=== PATIENT | female | born 1985 | race Caucasian/White ===

== ENCOUNTER 2020-08-02 09:15 | Emergency (ER) | payer SELFPAY ==
[2020-08-02] MEDS ORDERED: NORMAL SALINE 1000 ML 1,000 ML IV ONE (11:14)
[2020-08-02] MEDS ORDERED: MORPHINE SULFATE 10 MG/ML INJ IV ONE (11:15)
[2020-08-02] MEDS ORDERED: PROMETHAZINE HCL INJ 25 MG/1 ML VIAL IV ONE (11:15)
--- NOTE | 2020-08-02 11:21 | ER Document Report ---
ED GI/ - General Chief Complaint: Abdominal Pain Stated Complaint: NAUSEA,VOMITING,DIARRHEA Time Seen by Provider: 08/02/20 10:37 - HPI Patient complains to provider of: Abdominal pain. No: Diarrhea, Dysuria Timing/Duration: Gradual Quality of pain: Sharp Context: denies: Bad food Location: LLQ, RLQ, Low back Vaginal bleeding (Compared to normal period): None Associated symptoms: Loss of appetite, Nausea. denies: Blood in stool, Chest pain, Chills, Constipation, Diarrhea, Dysuria, Fever, Shortness of breath Exacerbated by: Food Relieved by: Denies Similar symptoms previously: Yes Recently seen / treated by doctor: Yes Notes: 08/02/20 12:41 Patient is a 34-year-old female with a past medical history of anxiety who presents with abdominal pain. Patient states abdominal pain has been present off and on for about 1 month. She describes it as pain in her bilateral lower quadrants that wraps around to her lower back. Patient denies any urinary symptoms. She denies any diarrhea or constipation. Patient has some nausea. Eating makes the pain worse. She has seen a GI specialist and had a colonoscopy and endoscopy within the past month because she had a 60 pound weight loss. Both of those results were normal. She has not had any blood work or imaging. She states that the GI specialist put her on 3 different antibiotics for an abd ominal infection including Cipro and Flagyl. She finished the medications without any relief. Patient does have a history of a gastric sleeve and a cholecystectomy. She denies any fevers or chills. She took Zofran and hydrocodone at home that was prescribed to her for the pain and there has been no relief. She also has a history of frequent headaches and thinks that the headaches are worsening due to the abdominal pain. - Related Data Allergies/Adverse Reactions: ketorolac [From Toradol] Allergy (Verified 08/02/20 10:03) Home Medications: ativan and norco Past Medical History - General Information source: Patient - Social History Smoking Status: Never Smoker Frequency of alcohol use: Social Drug Abuse: None Family History: Reviewed & Not Pertinent Past Surgical History: Reports: Hx Cholecystectomy, Hx Hysterectomy Review of Systems - Review of Systems Notes: CONSTITUTIONAL: No fever, fatigue. Positive for weight loss. SKIN: No rash. HENT: No congestion, ear pain, or sore throat. EYES: No recent vision problems or eye pain. ENDOCRINE: No polyuria or polydipsia. CARDIOVASCULAR: No chest pain or edema. RESPIRATORY: No cough, shortness of breath, congestion, or wheezing. GASTROINTESTINAL: Positive for abdominal pain and nausea. GENITOURINARY: No dysuria. MUSCULOSKELETAL: No joint pain or swelling. LYMPHATIC: No swollen glands. NEUROLOGIC: No seizures. Positive for headaches. HEMATOLOGIC: No unusual bruising or bleeding. PSYCHIATRIC: No depression or anxiety. Physical Exam - Vital signs Vitals: Temp Pulse BP Pulse Ox 98.5 F 81 123/78 97 08/02/20 09:32 08/02/20 09:32 08/02/20 09:32 08/02/20 09:32 Interpretation: Normal - Notes Notes: VITAL SIGNS: Within normal limits. GENERAL: No acute distress, non-toxic appearance. HEAD: Normal with no signs of head trauma. EYES: EOMI, conjunctiva normal, no discharge. EARS: Hearing grossly intact. NOSE: Normal. NECK: Normal range of motion, no tenderness, supple, no lymphadenopathy, No adenopathy, no JVD. CHEST: Clear breath sounds bilaterally. No wheezes, rales, or rhonchi. CARDIAC: Regular rate and rhythm. S1 and S2, without murmurs, gallops, or rubs. ABDOMEN: Soft. Discomfort to palpation in the bilateral lower quadrants. No guarding. No rebound. GASTROINTESTINAL: Bowel sounds normal GENITOURINARY: Normal, No tenderness LYMPATHTIC: No lymphadenopathy noted. MUSCULOSKELETAL: Good range of motion of all major joints. Extremities without clubbing, cyanosis or edema. NEUROLOGICAL: Alert and oriented x 3. No focal sensory or strength deficits. Speech normal. Follows commands appropriately. PSYCHIATRIC: Normal Affect, judgement and mood. SKIN: Normal appearance with no rashes or lesions. Course - Re-evaluation Re-evalutation: 08/02/20 12:46 Patient states she has taken medications at home last night with no relief. She has never had a CAT scan or blood work done. I will obtain blood work and imaging. Patient's pain and nausea will be treated. Patient CT scan was unremarkable. Her lab work was also reviewed. I did discuss all the results with the patient. She states she feels better after pain medicine and Phenergan. I did inform her that she needs to follow-up with her GI doctor this week as he may be able to do further work-up to find the etiology of her symptoms. Patient was given a prescription for Bentyl and Phenergan as she states that helped better than the Zofran that she has at home. She was given strict return precautions including worsening pain, fever, vomiting and she verbalized understanding. 08/02/20 19:30 - Vital Signs Vital signs: Temp Pulse Resp BP Pulse Ox 98.0 F 53 L 18 106/76 100 08/02/20 14:56 08/02/20 14:56 08/02/20 14:56 08/02/20 14:56 08/02/20 14:56 - Laboratory Result Diagrams: 08/02/20 11:40 08/02/20 11:40 Laboratory results interpreted by me: 08/02/20 12:02 Urine Blood SMALL H Discharge - Discharge Clinical Impression: Abdominal pain Qualifiers: Abdominal location: lower abdomen, unspecified Qualified Code(s): R10.30 - Lower abdominal pain, unspecified Condition: Stable Disposition: HOME, SELF-CARE Instructions: Abdominal Pain ([facility]), Antispasmodics ([facility]) Additional Instructions: Please follow-up with your GI doctor on Wednesday. Please return for any worsening symptoms, fever, or vomiting. Prescriptions: Dicyclomine HCl [Bentyl 10 mg Capsule] 1 cap PO QID 5 Days #20 cap Promethazine HCl [Phenergan 25 mg Tablet] 25 mg PO Q6H PRN 5 Days #10 tablet PRN Reason:
[2020-08-02 12:01] LABS: ABSOLUTE LYMPHOCYTES (AUTO) 1.5 10^3/uL (0.5-4.7); ABSOLUTE MONOCYTES (AUTO) 0.3 10^3/uL (0.1-1.4); ABSOLUTE NEUT (AUTO) 2.4 10^3/uL (1.7-8.2); BASOPHILS % (AUTO) 1.2 % (0-2); EOSINOPHILS % (AUTO) 0.9 % (0-6); HEMATOCRIT 37.4 % (36.0-47.0); HEMOGLOBIN 13.5 g/dL (12.0-15.5); MEAN CORPUSCULAR HEMOGLOBIN 32.9 pg (27.0-33.4); MEAN CORPUSCULAR VOLUME 91 fl (80-97); MONOCYTES % (AUTO) 6.4 % (3-13); PLATELET COUNT 192 10^3/uL (150-450); RED BLOOD COUNT 4.09 10^6/uL (3.72-5.28); RED CELL DISTRIBUTION WIDTH 12.6 % (11.5-14.0); SEGMENTED NEUTROPHILS % (AUTO) 56.5 % (42-78); TOTAL CELLS COUNTED % (AUTO) 100 %; WHITE BLOOD COUNT 4.2 10^3/uL (4.0-10.5)
[2020-08-02 12:25] LABS: ALBUMIN 4.3 g/dL (3.5-5.0); ALKALINE PHOSPHATASE 70 U/L (38-126); ANION GAP 7 (5-19); ASPARTATE AMINO TRANSFERASE 23 U/L (14-36); BILIRUBIN,DIRECT 0.2 mg/dL (0.0-0.4); BILIRUBIN,TOTAL 0.6 mg/dL (0.2-1.3); BLOOD UREA NITROGEN 7 mg/dL (7-20); CALCIUM 9.3 mg/dL (8.4-10.2); CARBON DIOXIDE 28 mmol/L (22-30); CHLORIDE 106 mmol/L (98-107); GLUCOSE 97 mg/dL (75-110); POTASSIUM 4.1 mmol/L (3.6-5.0); TOTAL PROTEIN 6.9 g/dL (6.3-8.2)
[2020-08-02 12:30] LABS: APPEARANCE,URINE SLIGHTLY-CLOUDY; BILIRUBIN,URINE NEGATIVE (NEGATIVE); COLOR,URINE YELLOW; GLUCOSE, URINE NEGATIVE (NEGATIVE); KETONES,URINE NEGATIVE (NEGATIVE); PROTEIN,URINE NEGATIVE (NEGATIVE); URINE SPECIFIC GRAVITY 1.013; UROBILINOGEN,URINE NEGATIVE mg/dL (<2.0)
--- NOTE | 2020-08-02 13:51 | RADIOLOGY REPORT (SQ) ---
EXAM DESCRIPTION: CT ABD/PELVIS WITH IV ONLY IMAGES COMPLETED DATE/TIME: 08/02/2020 1:35 pm REASON FOR STUDY: lower quadrant bilat abdominal pain COMPARISON: None. TECHNIQUE: CT scan of the abdomen and pelvis performed using helical scanning technique with dynamic intravenous contrast injection. No oral contrast. Images reviewed with lung, soft tissue, and bone windows. Reconstructed coronal and sagittal MPR images reviewed. Delayed images for evaluation of the urinary system also acquired. All images stored on PACS. All CT scanners at this facility use dose modulation, iterative reconstruction, and/or weight based d osing when appropriate to reduce radiation dose to as low as reasonably achievable (ALARA). [facility]: Dose Right [facility]: CareDose [facility]: Dose Right [facility]: Teradose 4D [facility]: RSVP Law CONTRAST TYPE AND DOSE: contrast/concentration: Isovue 350.00 mmol/ml; Total Contrast Delivered: 88. 0 ml; Total Saline Delivered: 70.0 ml RENAL FUNCTION: None required. The patient is less than 50 years old. RADIATION DOSE: CT Rad equipment meets quality standard of care and radiation dose reduction techniq ues were employed. CTDIvol: 5.9 - 8.2 mGy. DLP: 744 mGy-cm.. LIMITATIONS: None. FINDINGS: LOWER CHEST: Minimal dependent hypoventilatory change. LIVER: Normal size. No masses. No dilated ducts. SPLEEN: Normal size. No focal lesions. PANCREAS: No masses. No significant calcifications. No adjacent inflammation or peripancreatic fluid collections. Pancreatic duct not dilated. GALLBLADDER: Surgically absent. ADRENAL GLANDS: No significant masses or asymmetry. RIGHT KIDNEY AND URETER: No solid masses. No significant calcifications. No hydronephrosis or hyd roureter. LEFT KIDNEY AND URETER: No solid masses. No significant calcifications. No hydronephrosis or hydr oureter. AORTA AND VESSELS: No aneurysm. No dissection. Renal arteries, SMA, celiac without stenosis. RETROPERITONEUM: No retroperitoneal adenopathy, hemorrhage or masses. BOWEL AND PERITONEAL CAVITY: No evidence of intestinal obstruction. Evidence of prior gastric bypass . No focal bowel wall thickening. APPENDIX: Normal. PELVIS: No mass. No free fluid. Normal bladder. ABDOMINAL WALL: No masses. No hernias. BONES: No significant or acute findings. OTHER: No other significant finding. IMPRESSION: 1. No evidence of acute intra-abdominal/pelvic process. 2. Prior cholecystectomy. Prior gastric bypass. TECHNICAL DOCUMENTATION: JOB ID: [id number] Quality ID # [id number]: Final reports with documentation of one or more dose reduction techniques (e.g., Au tomated exposure control, adjustment of the mA and/or kV according to patient size, use of iterative reconstruction technique) 2010 [employer]- All Rights Reserved Reading location - IP/workstation name: [email or web address]
[2020-08-02 15:04] VITALS: BP 106/76
== END 2020-08-02 15:05 | disposition home or self-care (01) ==
LOC: ER 09:15
DX: R10.30 Lower abdominal pain, unspecified (principal); R11.2 Nausea with vomiting, unspecified; R19.7 Diarrhea, unspecified; Z90.49 Acquired absence of other specified parts of digestive tract
CPT/HCPCS: 99285; 96361; 96374; 96375; 36415; 83690; 84703; 85025; 80053; 81001; 74177; J2270; J2550; J7030

== ENCOUNTER 2020-09-07 18:48 | Emergency (ER) | payer SELFPAY ==
--- NOTE | 2020-09-07 19:01 | ER Document Report ---
ED Medical Screen (RME) - General Chief Complaint: Headache Stated Complaint: HEADACHE,ABDOMINAL PAIN,RIB PAIN Time Seen by Provider: 09/07/20 18:54 Notes: HPI: 35-year-old female presenting with multiple complaints. Patient states that she has had several months worth of abdominal issues, worse over the last several weeks where she describes generalized abdominal cramping, poor food absorption. States she has seen her PCP GI and been to the hospital here. Patient has had history of prior gastric bypass. Patient reports 3 days ago a friend gave her a hug and she felt her left ribs "pop". Now with pain with deep breathing or palpation or movement. Also reports a generalized headache that has been present for 3 days without resolution. No visual change or loss. PHYSICAL EXAMINATION: Mild generalized abdominal pain on palpation there is tenderness on palpation of the left chest wall and ribs laterally. Review of records show that she had CT imaging done approximately 5 weeks ago through the ER with IV contrast only. I have greeted and performed a rapid initial assessment of this patient. A comprehensive ED assessment and evaluation of the patient, analysis of test results and completion of medical decision making process will be conducted by an additional ED providers. - Related Data Allergies/Adverse Reactions: ketorolac [From Toradol] Allergy (Verified 08/02/20 10:03) Past Medical History Past Surgical History: Reports: Hx Cholecystectomy, Hx Hysterectomy Physical Exam - Vital signs Vitals: Temp Pulse Resp BP Pulse Ox 98.4 F 72 16 115/81 100 09/07/20 18:54 09/07/20 18:54 09/07/20 18:54 09/07/20 18:54 09/07/20 18:54 Course - Vital Signs Vital signs: Temp Pulse Resp BP Pulse Ox 98.4 F 72 16 115/81 100 09/07/20 18:54 09/07/20 18:54 09/07/20 18:54 09/07/20 18:54 09/07/20 18:54
[2020-09-07] MEDS ORDERED: METOCLOPRAMIDE HCL INJ/PF 10 MG/2 ML SDV IV ONE (19:52)
[2020-09-07] MEDS ORDERED: RINGERS SOLUTION,LACTATED 1,000 ML IV ONE (19:52)
[2020-09-07] MEDS ORDERED: DICYCLOMINE HCL INJ 20 MG/2 ML AMPULE IM ONE (19:52)
--- NOTE | 2020-09-07 19:57 | ER Document Report ---
ED General - General Chief Complaint: Headache Stated Complaint: HEADACHE,ABDOMINAL PAIN,RIB PAIN Time Seen by Provider: 09/07/20 18:54 Mode of Arrival: Ambulatory Information source: Patient Notes: Patient is a 35-year-old female coming in today with chief complaint of abdominal pain with increasing cramping. Also having unintended weight loss. Evidently has undergone gastric sleeve surgery sometime ago has done well. Has developed this problem and has seen a local GI specialist. Tonight she comes in with increasing intestinal spasms and nausea. Also states that recently somebody hugged her and she felt a popping in her ribs on the left. Having increased pain in her chest wall as a result. Has no fevers or chills. Every time she eats or drinks something it causes diarrhea. - Related Data Allergies/Adverse Reactions: ketorolac [From Toradol] Allergy (Verified 08/02/20 10:03) Past Medical History - Social History Smoking Status: Unknown if Ever Smoked Family History: Reviewed & Not Pertinent Past Surgical History: Reports: Hx Cholecystectomy, Hx Hysterectomy Review of Systems - Review of Systems Notes: Constitutional: No fevers. No chills. EENT: No eye redness. No eye pain. No ear pain. No sore throat. Cardiovascular: No chest pain. No palpitations. Respiratory: No cough. No shortness of breath. No respiratory distress. Gastrointestinal: Nausea for abdominal pain, loose stools Genitourinary: Atraumatic. No lesions. No pain. No discharge. Musculoskeletal: Atraumatic. No swelling. No deformities. Positive for left chest wall/rib pain Skin: No rash or lesions. Lymphatic: No swollen lymph nodes. Neurologic: No headache. No syncope. Psychiatric: No suicidal or homicidal ideation. Physical Exam - Vital signs Vitals: Temp Pulse Resp BP Pulse Ox 98.4 F 72 16 115/81 100 09/07/20 18:54 09/07/20 18:54 09/07/20 18:54 09/07/20 18:54 09/07/20 18:54 - Notes Notes: General: Well-developed, well-nourished. In no acute distress. Non-toxic appearing. Cardiac: Well-perfused. Regular rate and rhythm. No murmurs, rubs, or gallops. Pulmonary: No respiratory distress. No cyanosis. Bilateral lung [place] are clear to auscultation. Abdominal: Abdomen is diffusely tender to palpate although increased tenderness over the right upper and left upper quadrants. Is appreciated. Nondistended. Nonrigid. Bowel sounds present all 4 quadrants. No CVA tenderness. HEENT: Head is atraumatic. Conjunctivae not reddened. No tearing. PERRL. EOMI. Orbits atraumatic. No periorbital swelling or erythema. Oropharynx is without erythema, swelling, or exudates. Neck: Supple. No adenopathy. No meningismus. Dermatologic: Warm with good turgor. No rash. Atraumatic. Chest: Atraumatic. No chest wall tenderness to palpation. Musculoskeletal: Moves all extremities well. No range of motion deficits. no muscular or joint tenderness. No paraspinal muscle tenderness. no midline spinal tenderness or step-off. Genitourinary: Examination deferred Neurologic: No gross neurologic deficits. Psychiatric: Normal mood. Course - Re-evaluation Re-evalutation: 09/07/20 19:57 Appropriate orders were put in in the triage area. We will add some Reglan, lactated Ringer's and Bentyl. CT scan with IV and oral contrast pending. 09/07/20 22:40 Patient is feeling improved from previous. Her labs are all normal. Her rib x- rays are negative. CT abdomen and pelvis with oral and IV contrast is also negative. Patient has reliable follow-up. We will start her on Bentyl as needed for intestinal spasm and give her some [place] to take at home if needed. Follow-up with her doctor in the beginning of the week - Vital Signs Vital signs: Temp Pulse Resp BP Pulse Ox 98.4 F 72 16 115/81 100 09/07/20 18:54 09/07/20 18:54 09/07/20 18:54 09/07/20 18:54 09/07/20 18:54 - Laboratory Result Diagrams: 09/07/20 19:55 09/07/20 19:55 Laboratory results interpreted by me: 09/07/20 19:55 [facility] 33.8 H Discharge - Discharge Clinical Impression: Rib pain on left side Abdominal pain Qualifiers: Abdominal location: generalized Qualified Code(s): R10.84 - Generalized abdominal pain Condition: Good Disposition: HOME, SELF-CARE Instructions: Abdominal Pain ([facility]), Antispasmodics ([facility]), Chest Wall Pain ([facility]) Prescriptions: Dicyclomine HCl [Bentyl 10 mg Capsule] 1 cap PO QIDP PRN #30 cap PRN Reason: Referrals: ANGEL FAIR MD [Primary Care Provider] - Follow up in 3-5 days
[2020-09-07 20:22] LABS: ABSOLUTE MONOCYTES (AUTO) 0.4 10^3/uL (0.1-1.4); EOSINOPHILS % (AUTO) 0.7 % (0-6); RED CELL DISTRIBUTION WIDTH 13.4 % (11.5-14.0); TOTAL CELLS COUNTED % (AUTO) 100 %
[2020-09-07 20:28] LABS: ABSOLUTE LYMPHOCYTES (AUTO) 1.6 10^3/uL (0.5-4.7); ABSOLUTE NEUT (AUTO) 4.3 10^3/uL (1.7-8.2); BASOPHILS % (AUTO) 0.7 % (0-2); HEMATOCRIT 38.1 % (36.0-47.0); HEMOGLOBIN 13.7 g/dL (12.0-15.5); LYMPHOCYTES % (AUTO) 25.2 % (13-45); MEAN CORPUSCULAR HEMOGLOBIN 33.8 pg (27.0-33.4); MEAN CORPUSCULAR VOLUME 94 fl (80-97); MONOCYTES % (AUTO) 6.1 % (3-13); PLATELET COUNT 238 10^3/uL (150-450); RED BLOOD COUNT 4.05 10^6/uL (3.72-5.28); SEGMENTED NEUTROPHILS % (AUTO) 67.3 % (42-78); WHITE BLOOD COUNT 6.3 10^3/uL (4.0-10.5)
[2020-09-07 20:42] LABS: ALBUMIN 4.8 g/dL (3.5-5.0); ALKALINE PHOSPHATASE 75 U/L (38-126); ANION GAP 8 (5-19); ASPARTATE AMINO TRANSFERASE 26 U/L (14-36); BILIRUBIN,DIRECT 0.1 mg/dL (0.0-0.4); BILIRUBIN,TOTAL 0.6 mg/dL (0.2-1.3); BLOOD UREA NITROGEN 9 mg/dL (7-20); CALCIUM 9.8 mg/dL (8.4-10.2); CARBON DIOXIDE 28 mmol/L (22-30); CHLORIDE 105 mmol/L (98-107); GLUCOSE 97 mg/dL (75-110); POTASSIUM 4.1 mmol/L (3.6-5.0); TOTAL PROTEIN 7.8 g/dL (6.3-8.2)
--- NOTE | 2020-09-07 20:55 | RADIOLOGY REPORT (SQ) ---
LEFT RIB AND CHEST RADIOGRAPHS: 09/07/2020 7:00 PM RIP TAILER HISTORY: 35-year-old patient with left-sided chest pain . TECHNIQUE: AP and oblique images of the left ribs are obtained. AP view of the chest was also obtained. COMPARISON: None available FINDINGS: There are no findings to suggest a pneumothorax. There are no findings to suggest an acute, displaced left-sided rib fracture or subluxation. The cardiomediastinal silhouette is normal in size.No pneumothorax is seen. No acute airspace opacities are seen. No discrete pleural effusion is apparent. Surgical clips are seen overlying the right upper quadrant of the abdomen, consistent with a previous cholecystectomy. IMPRESSION: There are no findings to suggest an acute, displaced fracture or subluxation within the left ribs. No acute airspace opacities are seen.
--- NOTE | 2020-09-07 21:55 | RADIOLOGY REPORT (SQ) ---
CT ABDOMEN PELVIS WITH IV CONTRAST HISTORY: Abdominal pain. History of gastric bypass. COMPARISON: 08/02/2020 TECHNIQUE: CT scan of the abdomen and pelvis was performed with IV contrast. This exam was performed according to our departmental dose-optimization program, which includes automated exposure control, adjustment of the mA and/or kV according to patient size and/or use of iterative reconstruction technique. FINDINGS: The lung bases are clear. No pleural or pericardial effusions. There is no hiatal hernia. There has been a prior cholecystectomy and hysterectomy. The liver, spleen, pancreas, adrenal glands, and kidneys are unremarkable. No hydronephrosis or urinary stones are seen. Oral contrast is seen in the small and large bowel. There is evidence of prior gastric surgery with no acute findings or inflammatory changes. No small bowel obstruction. The appendix is normal. No evidence of acute diverticulitis. No adenopathy, free fluid, or free air is identified. The aorta is normal in caliber. No acute bony findings are seen. No abnormal body wall hernia. IMPRESSION: No acute abdominal or pelvic findings.
[2020-09-07 22:18] LABS: APPEARANCE,URINE CLEAR; BILIRUBIN,URINE NEGATIVE (NEGATIVE); COLOR,URINE STRAW; GLUCOSE, URINE NEGATIVE (NEGATIVE); KETONES,URINE NEGATIVE (NEGATIVE); LEUKOCYTE ESTERASE,URINE NEGATIVE (NEGATIVE); NITRITE,URINE NEGATIVE (NEGATIVE); PROTEIN,URINE NEGATIVE (NEGATIVE); URINE SPECIFIC GRAVITY 1.004; UROBILINOGEN,URINE NEGATIVE mg/dL (<2.0)
[2020-09-07] MEDS ORDERED: HYDROCODONE/ACETAMINOPHEN 5-325 MG (6 TAB/ER DISP) PO PRN (22:43)
[2020-09-07 22:54] VITALS: BP 118/70
== END 2020-09-07 22:55 | disposition home or self-care (01) ==
LOC: ER 18:48
DX: K58.9 Irritable bowel syndrome, unspecified (principal); R10.84 Generalized abdominal pain; R10.817 Generalized abdominal tenderness; R07.81 Pleurodynia; R07.89 Other chest pain; R63.4 Abnormal weight loss; R11.0 Nausea; Z98.84 Bariatric surgery status; Z90.49 Acquired absence of other specified parts of digestive tract; Z90.710 Acquired absence of both cervix and uterus; Z88.8 Allergy status to other drugs, medicaments and biological substances
CPT/HCPCS: 99285; 96372; 96361; 96374; 36415; 83690; 85025; 81025; 80053; 81001; 71101; 74177; J0500; J2765; J7120